=== PATIENT | female | born 1965 | race Caucasian/White ===

== ENCOUNTER 2017-09-02 13:06 | Outpatient (CLI) | payer OTHER | END 2017-09-02 13:17 | disposition home or self-care (01) | LOC: RAD 13:06 | DX: M25.561 Pain in right knee (principal); M25.562 Pain in left knee ==

== ENCOUNTER 2017-09-03 15:07 | Outpatient (CLI) | payer OTHER | END 2017-09-03 17:00 | disposition home or self-care (01) | LOC: MRI 15:07 | DX: M25.561 Pain in right knee (principal) | CPT/HCPCS: 73721 ==

== ENCOUNTER 2022-07-01 14:50 | Emergency (ER) | payer OTHER ==
[~2022-07-01] VITALS: Ht 165.1 cm; Wt 79.4 kg
== END 2022-07-01 17:45 | disposition home or self-care (01) ==
LOC: ER 14:50
DX: T14.8XXA Other injury of unspecified body region, initial encounter (principal); X58.XXXA Exposure to other specified factors, initial encounter; Y93.9 Activity, unspecified; Y92.9 Unspecified place or not applicable; M79.652 Pain in left thigh